=== PATIENT | male | born 1935 | race Caucasian/White ===

== ENCOUNTER 2016-09-05 15:49 | Emergency (ER) | payer MEDICARE ==
[2016-09-05 15:49] VITALS: BMI 32.8
[2016-09-05 16:06] VITALS: TEMP 98.3
[2016-09-05 17:05] LABS: BASO % 0.6 % (0.0-2.0); EOS % 0.1 % (0.0-4.0); HEMATOCRIT 37.2 % (35.0-51.0); LYMPH # 0.8 K/uL (1.0-4.3); LYMPH % 12.9 % (20.0-40.0); MEAN CORPUSCULAR HEMOGLOBIN 32.5 pg (27.0-31.0); MEAN CORPUSCULAR HGB CONC 34.4 g/dL (33.0-37.0); MEAN PLATELET VOLUME 9.1 fL (7.2-11.7); MONO # 0.9 K/uL (0.0-0.8); MONO % 15.4 % (0.0-10.0); NRBC % 0.1 % (0.0-2.0); RED CELL DISTRIBUTION WIDTH 16.1 % (11.5-14.5)
[2016-09-05 17:07] LABS: MEAN CELL VOLUME 94.3 fL (80.0-94.0); WHITE BLOOD COUNT 6.1 K/uL (4.8-10.8)
[2016-09-05 17:17] LABS: POTASSIUM 4.4 mmol/L (3.6-5.2)
[2016-09-05 17:20] LABS: ALB/GLOB RATIO 0.8 (1.0-2.1); CALCIUM 8.1 mg/dl (8.6-10.4); TOTAL PROTEIN 6.7 g/dL (6.3-8.3)
[2016-09-05 17:21] LABS: VENOUS BLOOD GAS BASE EXCESS 1.5 mmol/L (0.0-2.0); VENOUS BLOOD GAS PCO2 49 mmHg (40-60); VENOUS BLOOD PH 7.36 (7.32-7.43)
[2016-09-05 17:32] LABS: TROPONIN I 0.061 ng/mL (0.00-0.120)
--- NOTE | 2016-09-05 17:33 | C.PDOC ---
History Of Present Illness 80-year-old male, PMHx includes CHF, Diabetes, AICD, presents to the emergency department with complaints generalized weakness. Daughter states patient has been experiencing three-day duration of decreased appetite, subjective fever and runny nose. This morning, patient got out of bed and fell, landing on his back. States he has been "shuffling" while walking x2 weeks. He is not using a cane or walker. No vomiting, diarrhea, dizziness, chest pain, shortness of breath, or any other associated symptoms. Patient was recently admitted to [facility] for CHF. Seen by Natasha Moreno and Chi today, where he was directed to the ED for further evaluation. Time Seen by Provider: 09/05/16 16:17 Chief Complaint (Nursing): Medical Clearance History Per: Family History/Exam Limitations: no limitations Onset/Duration Of Symptoms: Days Current Symptoms Are (Timing): Still Present Severity: Moderate Past Medical History Reviewed: Historical Data, Nursing Documentation, Vital Signs Vital Signs: Last Vital Signs Temp 98.3 F 09/05/16 16:02 Pulse 82 09/05/16 19:36 Resp 21 09/05/16 19:36 BP 111/65 09/05/16 19:36 Pulse Ox 94 L 09/06/16 21:20 - Medical History PMH: CAD, CHF, COPD, Diabetes, Emphysema, HTN, Hypercholesterolemia, Peripheral Edema Surgical History: Appendectomy, Coronary Stent (x7) - [facility] Procedures CORONAR ARTERIOGR-2 CATH (02/08/14) LEFT HEART CARDIAC CATH (02/08/14) LT HEART ANGIOCARDIOGRAM (02/08/14) Family History: States: Unknown Family Hx - Social History Hx Tobacco Use: No Hx Alcohol Use: No Hx Substance Use: No Review Of Systems Except As Marked, All Systems Reviewed And Found Negative. Constitutional: Positive for: Fever, Weakness Cardiovascular: Negative for: Chest Pain Gastrointestinal: Negative for: Vomiting Musculoskeletal: Positive for: Back Pain Skin: Negative for: Rash Neurological: Negative for: Weakness, Numbness, Headache, Dizziness Physical Exam - Physical Exam Appears: Non-toxic, No Acute Distress Skin: Warm, Dry, No Rash Oral Mucosa: Moist Tongue: Other (thrush) Lips: Normal Appearing Neck: Normal ROM Cardiovascular: Rhythm Regular, Murmur Respiratory: No Accessory Muscle Use, Rales (B/L) Gastrointestinal/Abdominal: Soft, No Tenderness Extremity: Pedal Edema (w/ erythema. chronic, pitting.), No Deformity, Swelling ED Course And Treatment - Laboratory Results Result Diagrams: 09/05/16 17:01 09/05/16 17:01 ECG: Interpreted By Me ECG Rhythm: Sinus Rhythm, L BBB Rate From EC O2 Sat by Pulse Oximetry: 94 - Radiology CXR: Interpreted by Me Medical Decision Making Medical Decision Making: Pt's BP "low" in PCP's office ~80 here mid 90's on arrival to low 100 No indication of sepsis, or dehydration Case discussed with dr Moreno in the Ed He reports pt has been on both enalapril and lisinopril that may be the cause of the hypotention also advised a influenza test Flu was (+) daughter reports he has had a mild cough for three day but no fever , Plan, dc home, will start tamiflu, f/u with dr Moreno this wk Disposition - Disposition Referrals: Casey Moreno MD [Staff Provider] - Disposition: HOME/ ROUTINE Disposition Time: 21:24 Condition: FAIR Additional Instructions: Follow up with dr Moreno on Thursday Follow change in meds he advised in the office Return to the ED for any new or worsening symptoms Prescriptions: Oseltamivir [Tamiflu] 1 cap PO BID #10 cap Benzonatate [Tessalon Perles] 1 sgl PO BID PRN #20 sgl PRN Reason: Cough Instructions: Weakness (ED) - Clinical Impression Clinical Impression: Weakness, Influenza - Scribe Statement The provider has reviewed the documentation as recorded by the Alvaro Philip All medical record entries made by the Angelibcherrie were at my direction and personally dictated by me. I have reviewed the chart and agree that the record accurately reflects my personal performance of the history, physical exam, medical decision making, and the department course for this patient. I have also personally directed, reviewed, and agree with the discharge instructions and disposition.
[2016-09-05 19:37] VITALS: BP 111/65; PULSE 82; RESP 21
[2016-09-05 21:27] VITALS: O2SAT 94
[2016-09-05] MEDS ORDERED: Bacitracin 500 Units/gm Oint Foilpak UD ONE (21:36)
--- NOTE | 2016-09-06 18:19 | RAD ---
PROCEDURE: CHEST RADIOGRAPH, 1 VIEW HISTORY: SOB COMPARISON: Comparison chest dated 2016 FINDINGS: LUNGS: Poor inspiration with low lung volumes, mild crowded bronchovascular markings and mild bibasilar atelectasis. Central pulmonary vasculature is also slightly congested in appearance however improved from prior study. . PLEURA: No pneumothorax or pleural fluid seen. CARDIOVASCULAR: The cardiomegaly. No change single lead pacemaker/defibrillator. OSSEOUS STRUCTURES: No significant abnormalities. VISUALIZED UPPER ABDOMEN: Normal. OTHER FINDINGS: None. IMPRESSION: Poor inspiration with low lung volumes, mild crowded bronchovascular markings and mild bibasilar atelectasis. Central pulmonary vasculature is also slightly congested in appearance however improved from prior study. .
--- NOTE | 2016-09-07 23:42 | CARD ---
APPROVED REPORT EKG Measurement Heart [id number] <Conclusion> Sinus rhythm with occasional premature ventricular complexes Left bundle branch block Abnormal ECG
== END 2016-09-05 22:04 | disposition home or self-care (01) ==
LOC: C.ER 15:49
DX: J11.1 Influenza due to unidentified influenza virus with other respiratory manifestations (principal)